=== PATIENT | male | born 1995 | race Caucasian/White ===

== ENCOUNTER 2017-03-29 12:53 | Emergency (ER) | payer SELFPAY ==
[~2017-03-29] VITALS: Ht 177.8 cm; Wt 91.3 kg
[~2017-03-29 12:53] MED LIST: CHLO.12%30 SWISH-SPIT; CLIN150 PO; IBUP800T23 PO; MMW SWISH-SPIT; PRED20 PO; ZOFR4TAB3 SL
[2017-03-29 12:57] VITALS: BP 142/78; PULSE 89; RESP 16; TEMP 98.4; O2SAT 96
[2017-03-29] MEDS ORDERED: LIDOCAINE HCL 1% PF 30 ML VIAL ONE (13:53)
[2017-03-29] MEDS ORDERED: LIDOCAINE HCL 1% 30 ML VIAL INFIL ONE (14:00)
[2017-03-29] MEDS ORDERED: LIDOCAINE 1%/EPINEPHrine 1:100,000 SOLN 20 ML VIAL INFIL ONE (14:00)
[2017-03-29] MEDS ORDERED: BACT800T5 PO (14:17)
--- NOTE | 2017-03-29 14:18 | PD ---
HPI Chief Complaint: Skin Problem Time Seen by Provider: 13:30 Travel History International Travel<30 days: No Contact w/Intl Traveler<30days: No Traveled to known affect area: No History of Present Illness HPI 21 YO male with c/o of abscess to left buttocks x5 days. Patient reports history of previous abscesses with similar symptoms. He denies fever or chills. He reports that the area became red and painful partially 5 days ago and has progressively worsened prompting his visit today. He reports pain in the left buttocks which is worse with movement and sitting, no alleviating factors, pain severity 5/10. PFSH Past Medical History Autoimmune Disease: Yes (KODAK ARBOLEDA VIRUS) Blood Disorders: No Anxiety: Yes Cardiovascular Problems: No Diminished Hearing: No Genitourinary: No Musculoskeletal: No Neurologic: No Psychiatric: Yes (PTSD) Respiratory: No Seizures: Yes Influenza Vaccination: No Past Surgical History Other Surgery: No Social History Alcohol Use: Yes (WEEKENDS) Tobacco Use: Yes Substance Use: No (PT STOPPED ABUSING XANAX APPROX. 1 MO AGO) Allergies-Medications (Allergen,Severity, Reaction): Coded Allergies: No Known Allergies (Verified , 03/29/17) Reported Meds & Prescriptions Reported Meds & Active Scripts Active Bactrim DS (Sulfamethoxazole-Trimethoprim) 800-160 Mg Tab 1 Tab PO BID Review of Systems Except as stated in HPI: all other systems reviewed are Neg General / Constitutional: No: Fever Eyes: No: Visual changes HENT: No: Headaches Cardiovascular: No: Chest Pain or Discomfort Respiratory: No: Shortness of Breath Gastrointestinal: No: Abdominal Pain Genitourinary: No: Dysuria Musculoskeletal: No: Pain Physical Exam Narrative GENERAL: Well-nourished, well-developed patient. SKIN: There is an indurated area in the left buttocks which measures about 4 cm cm in diameter. It is fluctuant but there is no pointing or drainage. There is a zone of inflammation around it but no lymphangitis.. HEAD: Normocephalic. EYES: No scleral icterus. No injection or drainage. NECK: Supple, trachea midline. No JVD or lymphadenopathy. CARDIOVASCULAR: Regular rate and rhythm without murmurs, gallops, or rubs. RESPIRATORY: Breath sounds equal bilaterally. No accessory muscle use. GASTROINTESTINAL: Abdomen soft, non-tender, nondistended. MUSCULOSKELETAL: No cyanosis, or edema. BACK: Nontender without obvious deformity. No CVA tenderness. Data Data Last Documented VS Vital Signs Date Time Temp Pulse Resp B/P Pulse Ox O2 Delivery O2 Flow Rate FiO2 03/29/17 12:57 98.4 89 16 142/78 96 Orders Lidocai-Epi 1%-1:100,000 Inj (Xylocaine- (03/29/17 14:00) Lidocaine 1% Inj (Xylocaine 1% Inj) (03/29/17 14:00) Lidocaine Pf 1% Inj (Xylocaine-Mpf 1% In (03/29/17 13:53) MDM Medical Decision Making Medical Screen Exam Complete: Yes Emergency Medical Condition: Yes Differential Diagnosis Abscess, inflamed sebaceous cyst, cellulitis Narrative Course 21-year-old male with chief complaint of painful abscess to left buttocks 5 days. Patient reports previous history of abscesses requiring drainage in the past. He denies fever or chills. On exam is 4 cm area of induration with central fluctuance. Incision and drainage performed. Patient tolerated procedure well. He was discharged home on Bactrim. Instructed to follow-up with his primary for recheck. Return precautions discussed. Patient verbalizes understanding and agrees to plan Procedures Procedure Narrative Incision and drainage of abscess to the right buttocks: Area prepped with Betadine. 2 cc of 1% lidocaine infiltrated to anesthetize the area. 0.5 cm linear incision made over area of fluctuance. Moderate amount of purulent drainage expressed. Area probed to break up loculations. A sterile dressing was applied. Patient tolerated procedure well. Diagnosis Primary Impression: Abscess Referrals: Primary Care Physician Additional Instructions: Take the antibiotics as prescribed. Keep the area covered with a clean dressing. Take [id number] Motrin [id number] milligrams every 6-8 hours as needed for pain. Return to emergency department if he developed new or worsening symptoms. Scripts Sulfamethoxazole-Trimethoprim (Bactrim DS)800-160 Mg Tab1 Tab PO BID #20 TAB Prov:Cristina Rodriguez 03/29/17 Disposition: 01 DISCHARGE HOME Cristina Rodriguez Mar 29, 2017 14:18
== END 2017-03-29 14:25 | disposition home or self-care (01) ==
LOC: PHED 12:53
DX: L02.31 Cutaneous abscess of buttock (principal); F43.10 Post-traumatic stress disorder, unspecified; Z72.0 Tobacco use
CPT/HCPCS: 10060

== ENCOUNTER 2017-05-22 15:33 | Emergency (ER) | payer SELFPAY ==
[~2017-05-22] VITALS: Ht 177.8 cm; Wt 88.7 kg
[~2017-05-22 15:33] MED LIST changes: +BACT800T5 PO; -CHLO.12%30 SWISH-SPIT; -CLIN150 PO; -IBUP800T23 PO; -MMW SWISH-SPIT; -PRED20 PO; -ZOFR4TAB3 SL
[2017-05-22 15:35] VITALS: BP 139/65; PULSE 78; RESP 18; TEMP 98.2; O2SAT 96
[2017-05-22 15:50] VITALS: BP 153/94; PULSE 85; RESP 18; O2SAT 97
[2017-05-22] MEDS ORDERED: MECL-62 PO (16:16)
--- NOTE | 2017-05-22 16:16 | PD ---
HPI Chief Complaint: Dizziness Time Seen by Provider: 15:49 Travel History International Travel<30 days: No Contact w/Intl Traveler<30days: No Traveled to known affect area: No History of Present Illness HPI Patient is a 21-year-old male presents emergency department for evaluation of dizziness. Patient states the dizziness gets worse when he goes from a lying to a standing or sitting to a lying position. Also states associated with some nausea without vomiting. No headaches no focalized weakness no presyncopal symptoms. Patient denies any chest pain shortness of breath or abdominal pain. Patient states symptoms been going on for the past few days, gradually worsening, mild to moderate in severity. PFSH Past Medical History Autoimmune Disease: Yes (KODAK ARBOLEDA VIRUS) Blood Disorders: No Anxiety: Yes Cardiovascular Problems: No Diminished Hearing: No Genitourinary: No Musculoskeletal: No Neurologic: No Psychiatric: Yes (PTSD) Respiratory: No Seizures: Yes ?: Not Past Surgical History Other Surgery: No Social History Alcohol Use: Yes (OCCAS) Tobacco Use: Yes (1/2 PPD) Substance Use: No (HX OF) Allergies-Medications (Allergen,Severity, Reaction): Coded Allergies: No Known Allergies (Verified , 05/22/17) Reported Meds & Prescriptions Reported Meds & Active Scripts Active Meclizine (Meclizine HCl) 25 Mg Tab 25 Mg PO TID PRN Review of Systems Except as stated in HPI: all other systems reviewed are Neg Physical Exam Narrative GENERAL: Well-developed well-nourished no obvious distress SKIN: Focused skin assessment warm/dry. HEAD: Atraumatic. Normocephalic. EYES: Pupils equal and round. No scleral icterus. No injection or drainage. ENT: No nasal bleeding or discharge. Mucous membranes pink and moist. TMs clear bilaterally. NECK: Trachea midline. No JVD. CARDIOVASCULAR: Regular rate and rhythm. No murmur appreciated. RESPIRATORY: No accessory muscle use. Clear to auscultation. Breath sounds equal bilaterally. GASTROINTESTINAL: Abdomen soft, non-tender, nondistended. Hepatic and splenic margins not palpable. MUSCULOSKELETAL: No obvious deformities. No clubbing. No cyanosis. No edema. NEUROLOGICAL: Awake and alert. No obvious cranial nerve deficits. Motor grossly within normal limits. Normal speech. Cranial nerves II through XII are grossly intact and nonfocal, 5 out of 5 strength in all 4 extremities. Cerebellar testing negative. And relates an even narrow based gait. PSYCHIATRIC: Appropriate mood and affect; insight and judgment normal. Data Data Last Documented VS Vital Signs Date Time Temp Pulse Resp B/P (MAP) Pulse Ox O2 Delivery O2 Flow Rate FiO2 05/22/17 16:49 05/22/17 15:50 85 18 97 Room Air 05/22/17 15:35 98.2 MDM Medical Decision Making Medical Screen Exam Complete: Yes Emergency Medical Condition: Yes Differential Diagnosis Labyrinthitis, otitis, vertigo, dehydration unlikely, ACS unlikely, arrhythmia unlikely, presyncope unlikely. Narrative Course Patient roomed emergency department, signs and symptoms are consistent with benign positional vertigo. Discussed trial of meclizine, at the maneuvers were discussed in the handout was given to the patient. Discussed follow-up with primary care physician. Diagnosis Primary Impression: Vertigo Med/Other Pt SpecificInfo: Prescription(s) given Scripts Meclizine (Meclizine) 25 Mg Tab 25 MG PO TID Y for VERTIGO, #20 TAB 0 Refills Prov: Sami Molina MD 05/22/17 Disposition: 01 DISCHARGE HOME Condition: Stable Sami Molina MD May 22, 2017 16:16
== END 2017-05-22 16:51 | disposition home or self-care (01) ==
LOC: PHED 15:33
DX: H81.10 Benign paroxysmal vertigo, unspecified ear (principal); F17.200 Nicotine dependence, unspecified, uncomplicated; Z86.2 Personal history of diseases of the blood and blood-forming organs and certain disorders involving the immune mechanism; Z86.59 Personal history of other mental and behavioral disorders; Z86.69 Personal history of other diseases of the nervous system and sense organs
CPT/HCPCS: 99283

== ENCOUNTER 2017-07-27 11:11 | Emergency (ER) | payer SELFPAY ==
[~2017-07-27] VITALS: Ht 177.8 cm; Wt 93.0 kg
[~2017-07-27 11:11] MED LIST changes: -BACT800T5 PO; +MECL-62 PO
[2017-07-27 11:22] VITALS: BP 140/85; PULSE 93; RESP 16; TEMP 98.6; O2SAT 97
[2017-07-27] MEDS ORDERED: CEPH-460 PO (12:08)
[2017-07-27] MEDS ORDERED: BACT800T5 PO (12:08)
--- NOTE | 2017-07-27 12:08 | PD ---
HPI Chief Complaint: Skin Problem Time Seen by Provider: 11:37 Travel History International Travel<30 days: No Contact w/Intl Traveler<30days: No Traveled to known affect area: No History of Present Illness HPI Patient comes in complaining of painful cyst at the cleft of his buttocks ongoing for approximately 2 weeks. Patient occasionally reports intermittent mild discomfort with this without radiation. Pain is primarily when he sits. Denies any fever or loss change in bowel or bladder, numbness or tingling anywhere, trauma, or previous episodes like this. Patient states he's been trying to the area clean and dry. Denies doing anything else for this. Denies anything making it better. Reports intermittent drainage from this as well. PFSH Past Medical History Autoimmune Disease: Yes (KODAK ARBOLEDA VIRUS) Blood Disorders: No Anxiety: Yes Cardiovascular Problems: No Diminished Hearing: No Genitourinary: No Musculoskeletal: No Neurologic: No Psychiatric: Yes (PTSD) Respiratory: No Seizures: Yes Influenza Vaccination: No Past Surgical History Other Surgery: No Social History Alcohol Use: Yes (OCCAS) Tobacco Use: Yes (1/2 PPD) Substance Use: No (HX OF) Allergies-Medications (Allergen,Severity, Reaction): Coded Allergies: No Known Allergies (Verified Adverse Reaction, Unknown, 07/27/17) Reported Meds & Prescriptions Reported Meds & Active Scripts Active Keflex (Cephalexin) 500 Mg Cap 500 Mg PO Q8H Bactrim DS (Sulfamethoxazole-Trimethoprim) 800-160 Mg Tab 1 Tab PO BID Review of Systems Except as stated in HPI: all other systems reviewed are Neg Physical Exam Narrative GENERAL: Well-developed, overly nourished, in no acute distress, and non-ill appearing. SKIN: Focused skin assessment warm and dry. Small tender pilonidal abscess noted a distal right of the cleft of the buttock. There is no drainage or crepitus noted. HEAD: Atraumatic. Normocephalic. EYES: Pupils equal and round. EOMI. No scleral icterus. No injection or drainage. ENT: No nasal bleeding or discharge. Mucous membranes pink and moist. NECK: Trachea midline. Supple. No nuclear rigidity. RESPIRATORY: No accessory muscle use. No respiratory distress. MUSCULOSKELETAL: No obvious deformities. No clubbing. No cyanosis. No edema. Full range of motion. NEUROLOGICAL: Awake and alert. No obvious cranial nerve deficits. Motor grossly within normal limits. Normal speech. PSYCHIATRIC: Appropriate mood and affect; insight and judgment normal. Data Data Last Documented VS Vital Signs Date Time Temp Pulse Resp B/P (MAP) Pulse Ox O2 Delivery O2 Flow Rate FiO2 07/27/17 11:22 98.6 93 16 140/85 (103) 97 Orders Orders Ed Discharge Order (07/27/17 12:09) MDM Medical Decision Making Medical Screen Exam Complete: Yes Emergency Medical Condition: Yes Differential Diagnosis Abscess, cellulitis, pilonidal abscess, necrotizing fasciitis Narrative Course Patient refused I&D. The patient has no evidence of significant cellulitis. There is no evidence of necrotizing fasciitis/ [place] at this time. The patient will be discharged on antibiotics. The patient was given signs and symptoms warnings for worsening infection, such as spreading of redness, increasing pain , and/or swelling, associated heat, or fever or feels worse, and instructed to return immediately if these signs or symptoms worsen. The patient is to follow- up with his primary care doctor and/or general surgeon or return here if worsens or as needed. The patient agrees with plan. Patient in no obvious distress upon re-evaluation. Patient was asked if they wanted to speak to my attending, which the patient did not wish to do at this time. Any questions/concerns in reference to patient diagnosis/condition discussed and clarified prior to patient's discharge. Reinforced sheer importance of close follow up with patient's primary physician or primary care clinic. Instructed patient to return to ED immediately, if symptoms return/ worsen. Patient showed understanding of above instructions. Further instructions and recommendations were detailed in discharge paperwork. Patient ambulated without difficulty out of ED at discharge. Diagnosis Primary Impression: Pilonidal abscess Referrals: Ja Hayden MD General Surgeon Patient Instructions: General Instructions, Pilonidal Cyst (ED) Additional Instructions: Follow-up with general surgeon for definitive treatment. Take all medication as prescribed. Apply warm compresses to affected area. Obtain and use a hemorrhoid pillow for comfort. Return to the emergency department if symptoms get worse. Med/Other Pt SpecificInfo: Prescription(s) given Scripts Cephalexin (Keflex) 500 Mg Cap 500 MG PO Q8H for Infection, #30 CAP 0 Refills Prov: Ana Engel MD 07/27/17 Sulfamethoxazole-Trimethoprim (Bactrim DS) 800-160 Mg Tab 1 TAB PO BID for Infection, #20 TAB 0 Refills Prov: Ana Engel MD 07/27/17 Disposition: 01 DISCHARGE HOME Condition: Stable Cabrera Lovell Jul 27, 2017 12:08
== END 2017-07-27 12:29 | disposition home or self-care (01) ==
LOC: PHEFT 11:11
DX: L05.01 Pilonidal cyst with abscess (principal); F17.200 Nicotine dependence, unspecified, uncomplicated
CPT/HCPCS: 99284

== ENCOUNTER 2017-08-03 13:40 | Emergency (ER) | payer SELFPAY ==
[~2017-08-03] VITALS: Ht 177.8 cm; Wt 93.0 kg
[~2017-08-03 13:40] MED LIST changes: +BACT800T5 PO; +CEPH-460 PO; -MECL-62 PO
[2017-08-03 13:42] VITALS: BP 127/67; PULSE 88; RESP 16; TEMP 98.8; O2SAT 97
[2017-08-03] MEDS ORDERED: AMOX875T PO (14:03)
[2017-08-03] MEDS ORDERED: IBUP1TAB7 PO (14:03)
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
== END 2017-08-03 14:20 | disposition home or self-care (01) ==
LOC: PHEFT 13:40
DX: K05.10 Chronic gingivitis, plaque induced (principal); F43.10 Post-traumatic stress disorder, unspecified; Z72.0 Tobacco use
CPT/HCPCS: 99283

== ENCOUNTER 2017-08-19 11:22 | Emergency (ER) | payer SELFPAY ==
[~2017-08-19] VITALS: Ht 177.8 cm; Wt 93.5 kg
[~2017-08-19 11:22] MED LIST changes: +AMOX875T PO; -BACT800T5 PO; -CEPH-460 PO; +IBUP1TAB7 PO
[2017-08-19 11:27] VITALS: BP 130/85; PULSE 85; RESP 16; TEMP 98.7; O2SAT 98
--- NOTE | 2017-08-19 12:52 | PD ---
HPI Chief Complaint: Eye Problems/Injury Time Seen by Provider: 12:19 Travel History International Travel<30 days: No Contact w/Intl Traveler<30days: No Traveled to known affect area: No History of Present Illness HPI 22-year-old male presents to the ED for evaluation of left eye swelling and redness. Pain is rated 8/10. Described as constant, worse worsened by touch. No alleviating factors reported. Onset this morning when the patient woke up. He can identify no acute injury to the area. He denies foreign body sensation, blurred vision, headache. He endorses increased tearing. He denies fever, chills, cold or flu symptoms. He endorses history of hordeolum and states that symptoms are similar. He treated it with warm compress with no improvement of symptoms. PFSH Past Medical History Autoimmune Disease: Yes (KODAK ARBOLEDA VIRUS) Blood Disorders: No Anxiety: Yes Cardiovascular Problems: No Diminished Hearing: No Genitourinary: No Musculoskeletal: No Neurologic: No Psychiatric: Yes (PTSD) Respiratory: No Seizures: Yes Tetanus Vaccination: Unknown Influenza Vaccination: Yes Past Surgical History Other Surgery: No Social History Alcohol Use: Yes (OCCAS) Tobacco Use: Yes (1-2 CIGARETTES DAILY. 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 MARIJUANA USE) Allergies-Medications (Allergen,Severity, Reaction): Coded Allergies: No Known Allergies (Verified Adverse Reaction, Unknown, 08/19/17) Reported Meds & Prescriptions Reported Meds & Active Scripts Active Erythromycin Opth Oint 5 Mg/Gm Oint 1 Applic LEFT EYE QID 7 Days Ibuprofen 800 Mg Tab 800 Mg PO Q8H PRN Amoxicillin 875 Mg Tab 875 Mg PO BID Review of Systems Except as stated in HPI: all other systems reviewed are Neg Physical Exam Narrative GENERAL: Well-nourished, well-developed white male in no acute distress. SKIN: Warm and dry. HEAD: Normocephalic. Atraumatic. EYES: No scleral icterus. No injection or drainage. PERRLA. EOMI. The left upper eyelid is erythematous along the lid margin and generally edematous. There is a small hordeolum at the medial third of the upper eyelid. ENT: Pearly odom tympanic membranes bilaterally. Nasal mucosa is moist. Oropharynx without erythema, edema or exudate. NECK: Supple, trachea midline. No JVD or lymphadenopathy. CARDIOVASCULAR: Regular rate and rhythm without murmurs, gallops, or rubs. RESPIRATORY: Breath sounds clear and equal bilaterally. No accessory muscle use. GASTROINTESTINAL: Abdomen soft, non-tender, nondistended. + Bowel sounds MUSCULOSKELETAL: No cyanosis, or edema. BACK: Nontender without obvious deformity. No CVA tenderness. Data Data Last Documented VS Vital Signs Date Time Temp Pulse Resp B/P (MAP) Pulse Ox O2 Delivery O2 Flow Rate FiO2 08/19/17 11:27 98.7 85 16 130/85 (100) 98 Orders Orders Ed Discharge Order (08/19/17 12:53) MDM Medical Decision Making Medical Screen Exam Complete: Yes Emergency Medical Condition: Yes Differential Diagnosis Hordeolum versus chalazion versus blepharitis versus other Narrative Course 22-year-old male presents to the ED for evaluation of left eye swelling and redness. Onset this morning when the patient woke up. He can identify no acute injury to the area. He denies foreign body sensation, blurred vision, headache. He endorses increased tearing. He denies fever, chills, cold or flu symptoms. He endorses history of hordeolum and states that symptoms are similar. Patient is afebrile on presentation. Physical exam consistent with hordeolum. Patient's instructed to continue with warm compresses on and off 15 minutes at a time 4-6 times a day. Also provided a course of bacitracin ophthalmic ointment. He is instructed to follow-up with the instructional facilitator if symptoms do not improve within one week. He indicated understanding of instructions and is agreeable to the care plan. Patient is stable and discharged home. Diagnosis Primary Impression: Hordeolum externum left upper eyelid Referrals: Zahraa Martinez MD Patient Instructions: General InstructionsLiliana (ED) Departure Forms: Tests/Procedures, Work Release Enter return to work date: Aug 23, 2017 Additional Instructions: Warm compresses applied to the affected eye 15 minutes at a time 4-6 times daily will help to improve symptoms. You may take ibuprofen as prescribed, as needed for pain. Ribbon of erythromycin ointment 4 times a day for 5-7 days as prescribed. Follow-up with the instructional facilitator if symptoms do not improve within one week. Return to the ED for any urgent or emergent medical condition. Med/Other Pt SpecificInfo: Prescription(s) given Scripts Erythromycin Opth Oint (Erythromycin Opth Oint) 5 Mg/Gm Oint 1 APPLIC LEFT EYE QID for Infection for 7 Days, #1 TUBE 0 Refills Prov: Dano Winkler MD 08/19/17 Disposition: 01 DISCHARGE HOME Condition: Stable Eliza Rawls Aug 19, 2017 12:52
[2017-08-19] MEDS ORDERED: ERYTOIN10 LEFT EYE (12:53)
== END 2017-08-19 13:14 | disposition home or self-care (01) ==
LOC: PHEFT 11:22
DX: H00.014 Hordeolum externum left upper eyelid (principal); B27.00 Gammaherpesviral mononucleosis without complication; F41.9 Anxiety disorder, unspecified; F43.10 Post-traumatic stress disorder, unspecified; R56.9 Unspecified convulsions; F17.210 Nicotine dependence, cigarettes, uncomplicated; Z79.899 Other long term (current) drug therapy
CPT/HCPCS: 99283

== ENCOUNTER 2017-10-23 17:26 | Emergency (ER) | payer SELFPAY ==
[~2017-10-23] VITALS: Ht 177.8 cm; Wt 95.0 kg
[~2017-10-23 17:26] MED LIST changes: +ERYTOIN10 LEFT EYE
[2017-10-23 17:37] VITALS: BP 140/76; PULSE 96; RESP 18; TEMP 98.9; O2SAT 98
[2017-10-24] MEDS ORDERED: PRED20 PO (12:26)
[2017-10-24] MEDS ORDERED: DICL75TA PO (12:26)
== END 2017-10-23 17:54 | disposition left against medical advice (07) ==
LOC: NED 17:26
DX: M25.562 Pain in left knee (principal)
CPT/HCPCS: 99281

== ENCOUNTER 2017-10-24 11:50 | Emergency (ER) | payer SELFPAY ==
[~2017-10-24] VITALS: Ht 177.8 cm; Wt 93.5 kg
[2017-10-24 11:53] VITALS: BP 149/98; PULSE 94; RESP 16; TEMP 99.1; O2SAT 98
--- NOTE | 2017-10-24 12:19 | RADRPT ---
EXAM DATE/TIME: 10/24/2017 12:08 [facility] COMPARISON: No previous studies available for comparison. INDICATIONS : Left knee pain with no known injury MEDICAL HISTORY : Left patella fracture SURGICAL HISTORY : Left femur chandan ENCOUNTER: Initial ACUITY: 2 months PAIN SCORE: 10/10 LOCATION: Left anterior knee FINDINGS: There is previous chandan and screw fixation of the distal femur. No acute fracture. There is a circumscr ibed ossific loose body in the knee joint in the intercondylar region probably from prior trauma or a vulsion injury. CONCLUSION: 1. Previous fixation as above. No acute fracture. Well-corticated loose body near the central knee as above. Drake Loza MD on October 24, 2017 at 12:16 Board Certified Radiologist. This report was verified electronically.
[2017-10-24] MEDS ORDERED: PRED20 PO (12:26)
[2017-10-24] MEDS ORDERED: DICL75TA PO (12:26)
[2017-10-24] MEDS ORDERED: KETOROLAC TROMETHAMINE 60 MG/2 ML (IM) VIAL IM ONE (12:30)
[2017-10-24] MEDS ORDERED: DEXAMETHASONE SOD PHOS 20 MG/5 ML VIAL IM ONE (12:30)
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
== END 2017-10-24 12:46 | disposition home or self-care (01) ==
LOC: PHEFT 11:50
DX: M70.42 Prepatellar bursitis, left knee (principal); Z72.0 Tobacco use
CPT/HCPCS: 73564; 96372; 99283; J1100; J1885; L1830

== ENCOUNTER 2017-11-26 17:19 | Emergency (ER) | payer SELFPAY ==
[~2017-11-26] VITALS: Ht 177.8 cm; Wt 95.2 kg
[~2017-11-26 17:19] MED LIST changes: -AMOX875T PO; +DICL75TA PO; -ERYTOIN10 LEFT EYE; -IBUP1TAB7 PO; +PRED20 PO
[2017-11-26 17:27] VITALS: BP 112/77; PULSE 81; RESP 18; TEMP 98.5; O2SAT 96
--- NOTE | 2017-11-26 17:58 | PD ---
HPI Chief Complaint: Skin Problem Time Seen by Provider: 17:33 Travel History International Travel<30 days: No Contact w/Intl Traveler<30days: No Traveled to known affect area: No History of Present Illness HPI This is a 22-year-old male here with a pruritic rash to his right lower extremity. Symptom onset today. Denies fever chills. Denies injury or trauma to the area. Reports the rash is pruritic and mildly painful when touched. The severity is mild. No aggravating or alleviating factors. Has not attempted any [id number] medications. Reports he left work at [employer] to seek evaluation and is requesting a work excuse [facility] Past Medical History Autoimmune Disease: Yes (KODAK ARBOLEDA VIRUS) Blood Disorders: No Anxiety: Yes Cardiovascular Problems: No Diminished Hearing: No Genitourinary: No Musculoskeletal: No Neurologic: No Psychiatric: Yes (PTSD) Respiratory: No Immunizations Current: Yes Seizures: Yes Past Surgical History Other Surgery: No Social History Alcohol Use: Yes (OCCAS) Tobacco Use: Yes (1-2 CIGARETTES DAILY. 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 MARIJUANA USE) Allergies-Medications (Allergen,Severity, Reaction): Coded Allergies: No Known Allergies (Verified Allergy, Severe, 11/26/17) Reported Meds & Prescriptions Reported Meds & Active Scripts Active No Active Prescriptions or Reported Medications Review of Systems Except as stated in HPI: all other systems reviewed are Neg General / Constitutional: No: Fever Eyes: No: Visual changes HENT: No: Headaches Cardiovascular: No: Chest Pain or Discomfort Respiratory: No: Shortness of Breath Gastrointestinal: No: Abdominal Pain Genitourinary: No: Dysuria Physical Exam Narrative GENERAL: Alert and well-appearing 22-year-old male SKIN: Warm and dry. 3 x 2 cm area of rash consistent with contact dermatitis to right distal sorto. No evidence of infection. HEAD: Normocephalic. EYES: No injection or drainage. NECK: Supple CARDIOVASCULAR: Regular rate and rhythm RESPIRATORY: Breath sounds equal bilaterally. No accessory muscle use. GASTROINTESTINAL: Abdomen soft, non-tender, nondistended. MUSCULOSKELETAL: No cyanosis, or edema. BACK: Nontender without obvious deformity. No CVA tenderness. Data Data Last Documented VS Vital Signs Date Time Temp Pulse Resp B/P (MAP) Pulse Ox O2 Delivery O2 Flow Rate FiO2 11/26/17 17:27 98.5 81 18 112/77 (89) 96 Orders Orders Ed Discharge Order (11/26/17 18:00) MDM Medical Decision Making Medical Screen Exam Complete: Yes Emergency Medical Condition: Yes Differential Diagnosis Contact dermatitis, atopic dermatitis, other unspecified rash Narrative Course 22 year old male here with a small area of what appears to be a contact dermatitis to the right lower extremity. No evidence of infection. Diagnosis Primary Impression: Rash and nonspecific skin eruption Referrals: [facility] Departure Forms: Tests/Procedures, Work Release Enter return to work date: Nov 27, 2017 Additional Instructions: Benadryl as needed for itching. 1% hydrocortisone cream twice daily 1 week Antibiotic ointment as directed Scripts No Active Prescriptions or Reported Meds Disposition: 01 DISCHARGE HOME Condition: Stable Cristina Rodriguez Nov 26, 2017 17:58
== END 2017-11-26 18:22 | disposition home or self-care (01) ==
LOC: PHEFT 17:19
DX: R21 Rash and other nonspecific skin eruption (principal); F43.10 Post-traumatic stress disorder, unspecified; R56.9 Unspecified convulsions; F12.90 Cannabis use, unspecified, uncomplicated; F19.11 Other psychoactive substance abuse, in remission; Z72.0 Tobacco use
CPT/HCPCS: 99282

== ENCOUNTER 2018-01-13 12:32 | Emergency (ER) | payer SELFPAY ==
[~2018-01-13] VITALS: Ht 177.8 cm; Wt 86.0 kg
[2018-01-13 12:37] VITALS: BP 146/82; PULSE 83; RESP 20; TEMP 98.5; O2SAT 98
[2018-01-13] MEDS ORDERED: IBUPROFEN 800 MG TAB PO ONE (13:15)
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
[2018-01-13] MEDS ORDERED: traMADol HCL 50 MG TAB PO ONE (14:30)
[2018-01-13] MEDS ORDERED: IBUP1TAB7 PO (14:36)
[2018-01-13] MEDS ORDERED: TRAM50TA PO (14:36)
== END 2018-01-13 15:30 | disposition home or self-care (01) ==
LOC: NEPD 12:32
DX: S62.352A Nondisplaced fracture of shaft of third metacarpal bone, right hand, initial encounter for closed fracture (principal); F43.10 Post-traumatic stress disorder, unspecified; F17.210 Nicotine dependence, cigarettes, uncomplicated; W22.8XXA Striking against or struck by other objects, initial encounter
CPT/HCPCS: 73130; 99283